=== PATIENT | male | born 1940 | race African-American/Black ===

== ENCOUNTER 2017-02-04 19:56 | Emergency (ER) | payer MEDICARE, BC, OTHER ==
[~2017-02-04] VITALS: Ht 152.4 cm; Wt 69.1 kg
[~2017-02-04 19:56] MED LIST: 00186-0372-20 IH; ASPIRIN 32325 MG/TAB PO; ASPIRIN E.C. 8181 MG PO; LIPITOR20 MG PO; LISINOPRIL10 MG PO; LOPRESSOR 225 MG/TAB PO; LOPRESSOR 550 MG/TAB PO; METOPROLOL TART25 MG PO; METOPROLOL25 MG PO; MULTIPLE VITAMI1 CAP PO; PLAVIX 75MG TAB75 MG PO; PRAVACHOL 20MG20 MG PO; PRINIVIL10 MG PO; ZYRTEC 10MG10 MG PO
[2017-02-04 19:57] VITALS: TEMP 98.9
[2017-02-04 20:22] LABS: BASO # 0.1 (0.0-0.2); BASO % 1.3 % (0.0-2.0); EOS # 0.3 (0.0-0.7); EOS % 6.1 % (0-4.0); GRAN # 2.2 (1.4-6.5); GRAN % 48.1 % (42.2-75.2); HEMATOCRIT 43.1 % (42.0-52.0); HEMOGLOBIN 14.5 g/dl (13.5-18.0); LYMPH # 1.6 (1.2-3.4); LYMPH % 34.3 % (20.0-51.0); MEAN CELL VOLUME 94 fl (80.0-100.0); MEAN CORPUSCULAR HEMOGLOBIN 32 pg (27.0-31.0); MEAN CORPUSCULAR HGB CONC 34 g/dl (33.0-37.0); MEAN PLATELET VOLUME 10.3 fl (7.4-10.4); MONO # 0.5 (0.1-0.6); MONO % 9.8 % (1.7-9.3); PLATELET COUNT 139 K/mm3 (130-400); REDCELL DISTRIBUTION WIDTH-CV 13.5 % (11.5-14.5); WHITE BLOOD COUNT 4.6 K/mm3 (4.8-10.8)
[2017-02-04] MEDS ORDERED: VISTARIL 2525 MG/CAP PO (20:22)
[2017-02-04 20:37] LABS: ALBUMIN 4.3 gm/dL (3.5-5.0); BILIRUBIN,TOTAL 0.8 mg/dL (0.0-1.0); CALCIUM 9.2 mg/dL (8.4-10.2); CREATININE, serum 1.38 mg/dL (0.66-1.25); POTASSIUM 4.2 mmol/L (3.4-5.0)
[2017-02-04 20:47] LABS: INR 1.1 (0.8-3.0); PROTHROMBIN TIME 12.1 SECONDS (9.7-12.8)
[2017-02-04 20:49] LABS: TROPONIN-I 0.017 ng/mL (0.000-0.034)
[2017-02-04] MEDS ORDERED: PLAVIX 75MG TAB75 MG PO (21:41)
[2017-02-04 21:48] VITALS: BP 134/85; PULSE 69
== END 2017-02-04 21:57 | disposition home or self-care (01) ==
LOC: COL.ER 19:56
PROVIDERS: Emergency Medicine
DX: G45.9 Transient cerebral ischemic attack, unspecified (principal); I10 Essential (primary) hypertension; I25.10 Atherosclerotic heart disease of native coronary artery without angina pectoris; Z95.5 Presence of coronary angioplasty implant and graft
CPT/HCPCS: J7030

== ENCOUNTER 2020-02-05 15:58 | Emergency (ER) | payer MEDICARE, OTHER ==
[~2020-02-05] VITALS: Ht 165.1 cm; Wt 68.2 kg
[~2020-02-05 15:58] MED LIST changes: +VISTARIL 2525 MG/CAP PO
[2020-02-05 16:05] VITALS: TEMP 98.4
[2020-02-05 16:48] LABS: BASO # 0.1 (0.0-0.2); BASO % 0.8 % (0.0-2.0); EOS # 0.1 (0.0-0.7); EOS % 2.2 % (0-4.0); GRAN # 4.2 (1.4-6.5); GRAN % 64.4 % (42.2-75.2); HEMATOCRIT 43.5 % (42.0-52.0); HEMOGLOBIN 13.6 g/dl (13.5-18.0); LYMPH # 1.7 (1.2-3.4); LYMPH % 26.7 % (20.0-51.0); MEAN CELL VOLUME 97 fl (80.0-100.0); MEAN CORPUSCULAR HEMOGLOBIN 30 pg (27.0-31.0); MEAN CORPUSCULAR HGB CONC 31 g/dl (33.0-37.0); MEAN PLATELET VOLUME 9.9 fl (7.4-10.4); MONO # 0.4 (0.1-0.6); MONO % 5.4 % (1.7-9.3); PLATELET COUNT 238 K/mm3 (130-400); RED BLOOD COUNT 4.48 M/mm3 (4.20-5.60); REDCELL DISTRIBUTION WIDTH-CV 13.1 % (11.5-14.5)
[2020-02-05 16:50] LABS: INR 1.2 (0.8-3.0); PROTHROMBIN TIME 13.2 SECONDS (9.7-12.8)
[2020-02-05 16:55] LABS: ALBUMIN 4.1 gm/dL (3.5-5.0); BILIRUBIN,TOTAL 0.5 mg/dL (0.0-1.0); CALCIUM 9.9 mg/dL (8.4-10.2); CREATININE, serum 1.39 (0.66-1.25); TOTAL PROTEIN 8.9 gm/dL (6.4-8.2)
[2020-02-05 18:30] VITALS: BP 146/90; PULSE 78
== END 2020-02-05 19:00 | disposition home or self-care (01) ==
LOC: COL.ER 15:58
PROVIDERS: Physician Assistant
DX: K52.9 Noninfective gastroenteritis and colitis, unspecified (principal); I10 Essential (primary) hypertension; I25.10 Atherosclerotic heart disease of native coronary artery without angina pectoris; Z90.49 Acquired absence of other specified parts of digestive tract; Z79.02 Long term (current) use of antithrombotics/antiplatelets; Z79.82 Long term (current) use of aspirin
CPT/HCPCS: J7030

== ENCOUNTER 2020-06-28 08:58 | Outpatient (RCR) | payer MEDICARE, OTHER | END 2020-06-28 09:13 | disposition home or self-care (01) | LOC: MKS.ESL.PT 08:58 | DX: F07.81 Postconcussional syndrome (principal); G31.84 Mild cognitive impairment of uncertain or unknown etiology ==

== ENCOUNTER 2021-08-07 20:02 | Emergency (ER) | payer MEDICARE, OTHER ==
[2021-08-07 20:31] VITALS: TEMP 102.1
[2021-08-07] MEDS ORDERED: ZITHROMAX Z PA250 MG PO (22:48)
[2021-08-07] MEDS ORDERED: TAMIFLU 75MG75 MG PO (22:48)
[2021-08-07 23:05] VITALS: BP 127/86; PULSE 92
== END 2021-08-07 20:35 | disposition home or self-care (01) ==
LOC: COL.ER 20:02
DX: J10.1 Influenza due to other identified influenza virus with other respiratory manifestations (principal); I10 Essential (primary) hypertension; I25.10 Atherosclerotic heart disease of native coronary artery without angina pectoris; Z20.822 Contact with and (suspected) exposure to COVID-19; Z79.02 Long term (current) use of antithrombotics/antiplatelets; Z79.899 Other long term (current) drug therapy; Z79.82 Long term (current) use of aspirin